=== PATIENT | female | born 1975 | race Two or more races ===

== ENCOUNTER → 2016-12-29 | Outpatient (CLI) | payer MEDICAID ==
--- NOTE | 2016-12-29 15:01 | WOMENS IMAGING REPORT ---
EXAM DESCRIPTION: BILAT SCREENING MAMMO W/CAD COMPLETED DATE/TIME: 12/29/2016 10:03 am REASON FOR STUDY: ROUTINE SCREENING MAMMO, Z12.31 Z12.31 ENCNTR SCREEN MAMMOGRAM FOR MALIGNANT NEOP LASM OF ILIR COMPARISON: 12/29/2015. TECHNIQUE: Standard craniocaudal and mediolateral oblique views of each breast recorded using digita l acquisition. LIMITATIONS: None. FINDINGS: No masses, calcifications or architectural distortion. No areas of suspicion. Read with the assistance of CAD. .[facility] - R2 Cenova Version 1.3 .[facility] - R2 Cenova Version 1.3 .[facility] - R2 Cenova Version 2.4 .[facility] - R2 Cenova Version 2.4 .[facility] - R2 Ict Account Manager Version 9.2 IMPRESSION: NORMAL MAMMOGRAM. BIRADS 1. BREAST DENSITY: b. There are scattered areas of fibroglandular density. BIRAD: 1 NEGATIVE RECOMMENDATION: ROUTINE SCREENING COMMENT: The patient has been notified of the results by letter per SA requirements. Additional no tification policies are in place for contacting patient with suspicious or incomplete findings. Quality ID #[id number]: The [employer] recommends an annual screening mammogram for women aged 40 years or over. This facility utilizes a reminder system to ensure that all patients receive reminder letters, and/or direct phone calls for appointments. This includes reminders for routine scr eening mammograms, diagnostic mammograms, or other Breast Imaging Interventions when appropriate. Th is patient will be placed in the appropriate reminder system. The [employer] (ACR) has developed recommendations for screening MRI of the breast s in certain patient populations, to be used in conjunction with mammography. Breast MRI surveillanc e may be appropriate for women with more than 20% lifetime risk of developing breast cancer as deter mined by genetic testing, significant family history of the disease, or history of mantle radiation f or Hodgkins Disease. ACR Practice Guidelines 2008. TECHNICAL DOCUMENTATION: FINDING NUMBER: (1) ASSESSMENT: (1) JOB ID: [id number] [employer]- All Rights Reserved
== END ==
LOC: WI 08:35
PROVIDERS: ATTEND Family Medicine
DX: Z12.31 Encounter for screening mammogram for malignant neoplasm of breast (principal)
CPT/HCPCS: 77067; G0202

== ENCOUNTER 2017-10-19 16:56 | Emergency (ER) | payer MEDICAID ==
[2017-10-19] MEDS ORDERED: DIAZEPAM 5 MG TABLET PO ONE (18:36)
[2017-10-19] MEDS ORDERED: KETOROLAC TROMETHAMINE INJ/PF 30 MG/1 ML SDV IM ONE (18:36)
--- NOTE | 2017-10-19 18:41 | ER Document Report ---
ED Neck/Back Problem - General Chief Complaint: Neck Pain >24hrs old Stated Complaint: RT ARM/ NECK PAIN Time Seen by Provider: 10/19/17 18:13 Mode of Arrival: Ambulatory Information source: Patient TRAVEL OUTSIDE OF THE [place] IN LAST 30 DAYS: No - HPI Patient complains to provider of: Pain, Neck Onset: Other - 1 MONTH Notes: The patient is here with complaints of neck pain and right arm pain. This pain is been present for over a month now. She is seeing her primary care physician as well as a chiropractor and has been referred to orthopedics, but has not been able to see the orthopedist yet. She states that her pain seems to be getting worse despite taking Naprosyn and a muscle relaxer. She denies any trauma or injury. She denies fever. She denies numbness, tingling, weakness. She denies chest pain or shortness of breath. She denies fever. She denies IV drug use or blood thinnerS. She denies any abdominal pain. She has no nausea, vomiting, diarrhea. The pain is worse with movement of her right arm as well as her head and neck. Nothing seems to be making the pain better. - Related Data Allergies/Adverse Reactions: No Known Allergies Allergy (Verified 10/19/17 16:58) Past Medical History - Social History Smoking Status: Never Smoker Family History: Reviewed & Not Pertinent Patient has suicidal ideation: No Patient has homicidal ideation: No - Past Medical History Cardiac Medical History: Denies: Hx Coronary Artery Disease, Hx Heart Attack, Hx Hypertension Pulmonary Medical History: Denies: Hx Asthma, Hx Bronchitis, Hx COPD, Hx Pneumonia Neurological Medical History: Denies: Hx Cerebrovascular Accident, Hx Seizures Renal/ Medical History: Denies: Hx Peritoneal Dialysis Musculoskeltal Medical History: Denies Hx Arthritis - Immunizations Hx Diphtheria, Pertussis, Tetanus Vaccination: Yes Review of Systems - Review of Systems -: Yes All other systems reviewed and negative Physical Exam - Vital signs Vitals: Temp Pulse Resp BP Pulse Ox 97.7 F 76 18 109/69 98 10/19/17 17:04 10/19/17 17:04 10/19/17 17:04 10/19/17 17:04 10/19/17 17:04 - Notes Notes: GENERAL: alert, cooperative, nontoxic, no distress. HEAD: normocephalic, atraumatic EYES: conjunctiva pink without discharge, no external redness or swelling. EARS: no external swelling, no external redness NOSE: atraumatic, no external swelling MOUTH/THROAT: mucous membranes moist and pink, posterior pharynx without erythema, swelling, exudate. No trismus or drooling. NECK: soft, supple, limited range of motion. Tenderness to the posterior neck as well as the right lateral neck with trapezius muscle spasm noted. CHEST: no distress, lungs clear and equal throughout. No wheezing, rales, rhonchi. CARDIAC: regular rate and rhythm, no murmur, normal capillary refill, normal pulses. No peripheral edema noted. ABDOMEN: Soft, nontender. BACK: full range of motion, no CVA tenderness. EXTREMITIES: full range of motion of all extremities. No redness, no swelling. Pain in the neck with movement of the right arm. Equal strength of her upper extremities bilaterally. NEURO: alert and oriented x 3, no focal deficits, full range of motion of all extremities. Equal strength of her upper extremities bilaterally. Normal sensation. Tricep and bicep reflexes +2. PYSCH: appropriate mood, affect. Patient is cooperative. SKIN: pink, warm, dry, no rash. Course - Re-evaluation Re-evalutation: 10/19/17 19:48 Patient is nontoxic appearing with stable vitals. The patient is feeling significantly better after Toradol and Valium. She appears to have full range of motion of her head without significant difficulty. CT of the cervical spine shows no acute abnormalities per the radiologist. She has a nonfocal neuro exam with no strength deficit or sensation/reflex deficit. At this point I think the patient can be discharged home with prescriptions for Valium and Voltaren. She has appointment scheduled with orthopedics. She was instructed to keep these appointments for further evaluation. She is to follow-up sooner if she develops worsening pain, high fevers, weakness, difficulty controlling her bowels or bladder, or any further concerns. At this point the patient has no signs of epidural abscess/bleed or spinal cord compression. The patient's emergency department workup and current diagnosis were explained to the patient and or family. Follow-up instructions were provided. Medications if prescribed were discussed. Instructions for when to return to the emergency department including specific worrisome symptoms were discussed with the patient and/or family. - Vital Signs Vital signs: Temp Pulse Resp BP Pulse Ox 97.7 F 76 18 109/69 98 10/19/17 17:04 10/19/17 17:04 10/19/17 17:04 10/19/17 17:04 10/19/17 17:04 - Diagnostic Test Radiology reviewed: Image reviewed, Reports reviewed - CT of the cervical spine without acute findings. Discharge - Discharge Clinical Impression: Cervical paraspinal muscle spasm, Cervical radiculopathy Condition: Stable Disposition: HOME, SELF-CARE Instructions: Neck Injury (Cervical Strain) ([facility]), Radiculopathy ([facility]) Additional Instructions: Take medications as prescribed. Do not take your other muscle relaxer while taking the Valium. Follow-up with your orthopedist as scheduled. Follow-up sooner for increasing pain, fever, numbness, tingling, weakness, persistent vomiting, or for any further concerns. The medication you were prescribed today may cause drowsiness. Do not drive or operate heavy machinery while taking this medication. Prescriptions: Diazepam [Valium 5 mg Tablet] 5 mg PO QIDP PRN #15 tablet PRN Reason: Diclofenac Sodium [Voltaren 50 Mg Tablet.Dr] 50 mg PO BID #20 tablet. Forms: Smoking Cessation Education Referrals: [facility] [Provider Group] - Follow up as needed
--- NOTE | 2017-10-19 19:09 | RADIOLOGY REPORT (SQ) ---
EXAM DESCRIPTION: CT CERVICAL SPINE WITHOUT COMPLETED DATE/TIME: 10/19/2017 6:55 pm REASON FOR STUDY: NECK PAIN, RIGHT ARM PAIN COMPARISON: None. TECHNIQUE: Axial images acquired through the cervical spine without intravenous contrast. Images re viewed with lung, soft tissue and bone windows. Reconstructed coronal and sagittal MPR images review ed. Images stored on PACS. All CT scanners at this facility use dose modulation, iterative reconstruction, and/or weight based d osing when appropriate to reduce radiation dose to as low as reasonably achievable (ALARA). [facility]: Dose Right [facility]: CareDose [facility]: Dose Right [facility]: Teradose 4D [facility]: Smart [employer] RADIATION DOSE: CT Rad equipment meets quality standard of care and radiation dose reduction techniq ues were employed. CTDIvol: 20.4 mGy. DLP: 382 mGy-cm. mGy. LIMITATIONS: None. FINDINGS: ALIGNMENT: Anatomic. MINERALIZATION: Normal. VERTEBRAL BODIES: No fractures or dislocation. DISCS: No significant disc disease. FACETS, LATERAL MASSES, POSTERIOR ELEMENTS: No fractures. No dislocation. No acute findings. HARDWARE: None in the spine. VISUALIZED RIBS: No fractures. LUNG APICES AND SOFT TISSUES: No significant or acute findings. OTHER: No other significant finding. IMPRESSION: NO ACUTE OR SIGNIFICANT FINDINGS IN THE CERVICAL SPINE. TECHNICAL DOCUMENTATION: JOB ID: [id number] Quality ID # [id number]: Final reports with documentation of one or more dose reduction techniques (e.g., Au tomated exposure control, adjustment of the mA and/or kV according to patient size, use of iterative reconstruction technique) 2010 [employer]- All Rights Reserved Reading location - IP/workstation name: [email or web address]
[2017-10-19 20:06] VITALS: BP 100/67
== END 2017-10-19 20:05 | disposition home or self-care (01) ==
LOC: ER 16:56
DX: M62.838 Other muscle spasm (principal); M54.12 Radiculopathy, cervical region; M79.601 Pain in right arm; M54.2 Cervicalgia
CPT/HCPCS: 99283; 96372; 72125; J3490; J1885

== ENCOUNTER 2018-03-21 11:06 | Emergency (ER) | payer SELFPAY ==
[2018-03-21 11:40] VITALS: BP 125/52
--- NOTE | 2018-03-21 12:08 | ER Document Report ---
HPI - HPI Patient complains to provider of: Right neck and upper extremity pain Onset: Other - Chronic pain since September Onset/Duration: Persistent Quality of pain: Sharp Pain Level: 5 Context: Patient presents complaining of flareup of her chronic pain to the right side of her neck and upper extremity since September. Patient states she has herniated disks to the neck. Patient denies any new injury. Patient denies any fever. Patient denies any difference in her pain symptoms today. Patient states that she is just out of medication to help manage her pain symptoms. Patient states she has had an outpatient MRI performed per her primary care provider. Associated Symptoms: Other - Right neck and upper extremity pain. denies: Fever , Headache Exacerbated by: Movement Relieved by: Denies Similar symptoms previously: Yes Recently seen / treated by doctor: No - ROS ROS below otherwise negative: Yes Systems Reviewed and Negative: Yes All other systems reviewed and negative - CONSTITUTIONAL Constitutional: DENIES: Fever, Chills - EENT EENT: DENIES: Sore Throat - NEURO Neurology: DENIES: Headache, Weakness - GASTROINTESTINAL Gastrointestinal: DENIES: Nausea - MUSCULOSKELETAL Musculoskeletal: REPORTS: Extremity pain, Neck Pain - DERM Skin Color: Normal Skin Problems: None Past Medical History - General Information source: Patient - Social History Smoking Status: Never Smoker Chew tobacco use (# tins/day): No Frequency of alcohol use: Occasional Drug Abuse: None Occupation: None Lives with: Family Family History: Reviewed & Not Pertinent Patient has suicidal ideation: No Patient has homicidal ideation: No Neurological Medical History: Denies: Hx Cerebrovascular Accident, Hx Seizures Renal/ Medical History: Denies: Hx Peritoneal Dialysis Musculoskeletal Medical History: Denies Hx Arthritis, Reports Other - Herniated disc C6-7 Past Surgical History: Reports: Hx Section - Immunizations Hx Diphtheria, Pertussis, Tetanus Vaccination: Yes Vertical Provider Document - CONSTITUTIONAL Agree With Documented VS: Yes Exam Limitations: No Limitations General Appearance: WD/WN, No Apparent Distress - INFECTION CONTROL TRAVEL OUTSIDE OF THE [place] IN LAST 30 DAYS: No - HEENT HEENT: Atraumatic, Normocephalic - NECK Neck: Supple, Other - Patient with cervical tenderness C5 through 7 area, increased tenderness to the right paraspinal muscles. negative: Lymphadenopathy -Left, Lymphadenopathy-Right - RESPIRATORY Respiratory: Breath Sounds Normal, No Respiratory Distress - CARDIOVASCULAR Cardiovascular: Regular Rate, Regular Rhythm Pulses: Normal: Radial - BACK Back: Abnormal Inspection - Right trapezius muscle tenderness - MUSCULOSKELETAL/EXTREMETIES Musculoskeletal/Extremeties: FEMI STEWART - NEURO Level of Consciousness: Awake, Alert, Appropriate Motor/Sensory: No Motor Deficit, No Sensory Deficit - DERM Integumentary: Warm, Dry, No Rash Course - Re-evaluation Re-evalutation: 03/21/18 12:07 Patient with good strength of bilateral upper extremities, equal music mixer. Pain extends from right paraspinal area down posterior aspect of right humerus over dorsal aspect of right forearm. No neurologic deficit. Patient encouraged to follow-up with primary doctor, pain management for further management of her chronic pain symptoms. - Vital Signs Vital signs: Temp Pulse Resp BP Pulse Ox 97.3 F 63 18 125/52 L 100 03/21/18 11:37 03/21/18 11:37 03/21/18 11:37 03/21/18 11:37 03/21/18 11:37 Discharge - Discharge Clinical Impression: Cervical radicular pain Condition: Stable Disposition: HOME, SELF-CARE Instructions: Chronic Pain Control ([facility]), Radiculopathy ([facility]) Additional Instructions: Return immediately for any new or worsening symptoms Followup with your primary care provider, call tomorrow to make a followup appointment Follow-up with pain management for further evaluation Prescriptions: Hydrocodone/Acetaminophen [[employer] 5-325 Tablet] 1 each PO Q4 PRN #15 tablet PRN Reason: Methylprednisolone [Medrol Dosepack (4 mg/Tab) 21 Tab/Dosepak] 4 mg PO ASDIR PRN #21 tab.ds.pk PRN Reason: Referrals: [facility] - Follow up tomorrow [facility] [Provider Group] - Follow up in 3-5 days
[2018-03-21] MEDS ORDERED: LIDOCAINE 5% (700 MG) TRANSDERMAL ADH..PATCH TP ONE (12:18)
== END 2018-03-21 12:26 | disposition home or self-care (01) ==
LOC: ER 11:06
DX: M54.12 Radiculopathy, cervical region (principal)
CPT/HCPCS: 99283

== ENCOUNTER 2018-03-29 15:30 | Emergency (ER) | payer OTHER ==
[2018-03-29 15:36] VITALS: BP 113/68
--- NOTE | 2018-03-29 16:14 | ER Document Report ---
ED Neck/Back Problem - General Chief Complaint: Neck Pain >24hrs old Stated Complaint: NECK PAIN Time Seen by Provider: 03/29/18 15:47 Mode of Arrival: Ambulatory Information source: Patient Notes: 42-year-old female presented ED for complaint of neck pain with numbness and tingling going down her right arm.. She states is been going on since September. She has been seen for this same pain on 03/21/2018. She was given a prescription for hydrocodone on methylprednisone and a referral to care in [facility] in [place] pain management. She states she came to the emergency room because she had run out of her narcotics and her pain was coming back. Patient is alert and oriented respirations regular and unlabored speaking in full sentences. TRAVEL OUTSIDE OF THE [place] IN LAST 30 DAYS: No - HPI Patient complains to provider of: Pain, Neck. No: Injury Onset: Other Onset: Chronic Timing: Still present - Since before September Quality of pain: Achy, Sharp Severity: Severe Pain Level: 5 Recent injury: No Associated symptoms: Like prior neck/back pain, Numbness/tingling, Radiation to arm, Upper back pain Exacerbated by: Movement of neck Relieved by: Nothing Similar symptoms previously: Yes Recently seen / treated by doctor: Yes - Related Data Allergies/Adverse Reactions: No Known Allergies Allergy (Verified 03/29/18 15:31) Past Medical History - General Information source: Patient - Social History Smoking Status: Never Smoker Cigarette use (# per day): No Chew tobacco use (# tins/day): No Smoking Education Provided: No Frequency of alcohol use: Occasional Drug Abuse: None Lives with: Family Family History: Reviewed & Not Pertinent Patient has suicidal ideation: No Patient has homicidal ideation: No - Past Medical History Cardiac Medical History: Reports: None Pulmonary Medical History: Reports: None EENT Medical History: Reports: None Neurological Medical History: Reports: None Endocrine Medical History: Reports: None Renal/ Medical History: Reports: None Malignancy Medical History: Reports: None GI Medical History: Reports: None Musculoskeletal Medical History: Reports Hx Arthritis, Reports Hx Musculoskeletal Deformity, Reports Hx Musculoskeletal Trauma Skin Medical History: Reports None Psychiatric Medical History: Reports: None Traumatic Medical History: Reports: None Infectious Medical History: Reports: None Past Surgical History: Reports: Hx Section - Immunizations Hx Diphtheria, Pertussis, Tetanus Vaccination: Yes Review of Systems - Review of Systems Constitutional: No symptoms reported EENT: No symptoms reported Cardiovascular: No symptoms reported Respiratory: No symptoms reported Gastrointestinal: No symptoms reported Genitourinary: No symptoms reported Female Genitourinary: No symptoms reported Musculoskeletal: No symptoms reported, Back pain, Neck pain Skin: No symptoms reported Hematologic/Lymphatic: No symptoms reported Neurological/Psychological: No symptoms reported Physical Exam - Vital signs Vitals: Temp Pulse Resp BP Pulse Ox 98.1 F 76 18 113/68 96 03/29/18 15:34 03/29/18 15:34 03/29/18 15:34 03/29/18 15:34 03/29/18 15:34 Interpretation: Normal - General General appearance: Appears well, Alert - HEENT Head: Normocephalic, Atraumatic Eyes: Normal Pupils: PERRL - Respiratory Respiratory status: No respiratory distress Chest status: Nontender Breath sounds: Normal Chest palpation: Normal - Cardiovascular Rhythm: Regular Heart sounds: Normal auscultation Murmur: No - Abdominal Inspection: Normal Distension: No distension Bowel sounds: Normal Tenderness: Nontender Organomegaly: No organomegaly - Back Back: Normal, Tender. No: Deformity/step-off, CVA tenderness, Vertebra tenderness, Scars, Scoliosis, Wounds - Extremities General upper extremity: Normal inspection, Nontender, Normal color, Normal ROM , Normal temperature General lower extremity: Normal inspection, Nontender, Normal color, Normal ROM , Normal temperature, Normal weight bearing. No: Aisha's sign - Neurological Neuro grossly intact: Yes Cognition: Normal Orientation: AAOx4 [place] Coma Scale Eye Opening: Spontaneous Basil Coma Scale Verbal: Oriented [place] Coma Scale Motor: Obeys Commands Basil Coma Scale Total: 15 Speech: Normal Cranial nerves: Normal Cerebellar coordination: Normal Motor strength normal: LUE, RUE, LLE, RLE Additional motor exam normals: Equal toilet attendant Babinski reflex: Normal (flexor plantar) Sensory: Normal - Psychological Associated symptoms: Normal affect, Normal mood - Skin Skin Temperature: Warm Skin Moisture: Dry Skin Color: Normal Course - Re-evaluation Re-evalutation: 03/31/18 03:18 Patient came to the emergency room to obtain more narcotics. She said there is no worsening of her pain she has not followed up with her instructed provider but she came to the emergency room because she was out of her narcotics. - Vital Signs Vital signs: Temp Pulse Resp BP Pulse Ox 98.1 F 76 18 113/68 96 03/29/18 15:34 03/29/18 15:34 03/29/18 15:34 03/29/18 15:34 03/29/18 15:34 Discharge - Discharge Clinical Impression: Chronic neck and back pain Condition: Stable Disposition: HOME, SELF-CARE Additional Instructions: Chronic Back Pain Chronic back pain (pain persisting longer than three months) is a common problem. A medical evaluation can look for herniated disc, arthritis, osteoporosis, tumors, and infections. But at least half the time, there's no obvious treatable cause. Anxiety and depression tend to worsen back pain. Ibuprofen or other anti-inflammatory medicine can help. A heating pad, used for 15-20 minutes at a time, can ease pain. For this type of back pain, narcotic medicines should be avoided. Muscle relaxers are rarely helpful unless you're having spasms. Activity is important. Find an aerobic exercise program that your back can tolerate. Too much rest makes back pain worse. Specific back exercises are usually prescribed to strengthen the back and abdominal muscles. Often, a physical therapist can help. Avoid heavy lifting, working while bent over, or standing with both knees straight. Most back pain patients do better with a firm mattress. If new symptoms of a "herniated disc" (radiation of pain, numbness, or tingling down the back of the leg or weakness in the leg) occur, you should be re-examined. Stretching Exercises for the Back The physician has recommended that you begin stretching exercises for your back. These are often used even while the back is painful. However, you should notify the physician if the activities seem to increase your pain. PELVIC TILT: Lie flat on your back with knees bent. Tighten your stomach and buttock muscles so it flattens your lower back against the floor. Hold 10 seconds. Repeat 10 times, twice daily. KNEE RAISE: Lying on the back with knees bent, raise one knee to your chest, then the other. Hold both knees against the chest 10 seconds, then lower one knee at a time. Repeat 10 times, twice daily. PARTIAL TRUNK RAISE: Lie face down, arms at your sides. Keeping your waist on the floor, use your arms raise your chest up. Support yourself on your elbows for 30 seconds. Repeat twice daily, increasing the time to two minutes as you recover. STEROID MEDICATION: You have been given an injection of medicine of the cortisone/steroid class. This medication is used to control inflammation or allergy. It is often continued as a pill for a short period of time, until the acute process subsides. There are usually no side effects from short-term use of cortisone-like medications. Some persons feel an increased sense of well-being and are not sleepy at bedtime. Long-term use of cortisone medications is best avoided, unless required for a severe condition. If your condition does not remit, or relapses after the course of corticosteroid medication, you should consult your physician. You can have a Lidoderm patch placed while in the emergency room. This needs to be removed after 12 hours. Then use your Biofreeze or Aspercreme which ever one you have at the time for your discomfort. I have also written you a prescription for muscle relaxers. I will write you the prescription for naproxen which is the same as your Aleve do not take both. Please asked for a consult to pain management or back specialist for your chronic pain to the back and neck. Muscle Relaxers Muscle relaxing medications are usually prescribed for acute muscle spasm or injury to the neck and back. They are often combined with antiinflammatory pain medication for increased relief. You may stop the muscle relaxer when the pain and stiffness have improved. Start the medication again if spasms recur. Muscle relaxers may cause drowsiness, especially with the first dose. Do not operate machinery or drive while under the effects of the medication. Most muscle relaxers last up to 24 hours. Do not combine the medication with alcohol. Exercise Program for the Shoulder Since the shoulder moves in so many directions, the joint attachment is weak. Muscles provide most of the stability to the shoulder. You must exercise your shoulder to prevent painful instability or stiffening. PASSIVE - These may be begun within a few days of the injury. While standing, lean forward, allowing the arm to hang down towards the floor. Move the arm in small circles while slowly twisting your chest towards and away from the hanging arm. Do this for one minute. ACTIVE - These may be performed when the doctor gives permission. Begin with the arms at the sides. Raise the arms forward (shoulder's width apart) until they reach shoulder level. Then slowly swing both arms back until they are aiming straight out away from each other. Then bring them forward again, and finally, lower them to your sides. Repeat 20 to 30 times. As you improve, put weights in your hands for the exercise. Start with one pound, and work up to 10 pounds. Never use more than is comfortable. Athletes may work up to 30 pounds. FOLLOW-UP CARE: If you have been referred to a physician for follow-up care, call the physician s office for an appointment as you were instructed or within the next two days. If you experience worsening or a significant change in your symptoms, notify the physician immediately or return to the Emergency Department at any time for re-evaluation. Prescriptions: Cyclobenzaprine HCl [Flexeril 10 mg Tablet] 10 mg PO TIDP PRN #15 tab PRN Reason: Naproxen 500 mg PO BID #30 tablet Referrals: [facility] [Provider Group] - Follow up as needed
[2018-03-29] MEDS ORDERED: LIDOCAINE 5% (700 MG) TRANSDERMAL ADH..PATCH TP ONE (16:16)
[2018-03-29] MEDS ORDERED: CYCLOBENZAPRINE HCL 10 MG TABLET PO ONE (16:16)
[2018-03-29] MEDS ORDERED: DEXAMETHASONE SOD PHOS INJ 10 MG/1 ML VIAL IM ONE (16:25)
== END 2018-03-29 17:20 | disposition home or self-care (01) ==
LOC: ER 15:30
DX: G89.29 Other chronic pain (principal); M54.2 Cervicalgia; M54.9 Dorsalgia, unspecified; R20.0 Anesthesia of skin
CPT/HCPCS: 99283; 96372; J1100